=== PATIENT | male | born 1985 | race Two or more races ===

== ENCOUNTER 2024-02-18 02:03 | Emergency (ER) | payer OTHER ==
[~2024-02-18] VITALS: Ht 180.3 cm; Wt 90.7 kg
[2024-02-18] MEDS ORDERED: ORPHENADRINE CITRATE 30 MG/ML AMPUL IM STA (04:52)
[2024-02-18] MEDS ORDERED: KETOROLAC TROMETHAMINE 60 MG VIAL IM STA (04:52)
[2024-02-18] MEDS ORDERED: ORPHENADRINE CITRATE 30 MG/ML AMPUL ONE (04:59)
[2024-02-18] MEDS ORDERED: MELOXICAM15 MG PO (06:39)
== END 2024-02-18 06:42 ==
LOC: ER 02:05
DX: R07.89 Other chest pain (principal); M62.830 Muscle spasm of back

== ENCOUNTER 2024-03-11 10:23 | Emergency (ER) | payer OTHER ==
[~2024-03-11] VITALS: Ht 180.3 cm; Wt 99.8 kg
[~2024-03-11 10:23] MED LIST: MELOXICAM15 MG PO
[2024-03-11] MEDS ORDERED: ORPHENADRINE CITRATE 30 MG/ML AMPUL IM ONE (11:45)
[2024-03-11] MEDS ORDERED: KETOROLAC TROMETHAMINE 60 MG VIAL IM ONE ×2 (11:45→12:27)
[2024-03-11] MEDS ORDERED: ORPHENADRINE CITRATE 30 MG/ML AMPUL ONE (12:27)
[2024-03-11] MEDS ORDERED: MEDROLPACK PO (14:42)
== END 2024-03-11 14:54 | disposition home or self-care (01) ==
LOC: ER 10:25
DX: M62.830 Muscle spasm of back (principal); Z91.013 Allergy to seafood